=== PATIENT | female | born 1995 | race Caucasian/White ===

== ENCOUNTER 2019-01-11 18:24 | Outpatient (CLI) | payer MEDICAID ==
[~2019-01-11] VITALS: Ht 160 cm; Wt 95.5 kg
[~2019-01-11 18:24] MED LIST: MOTRIN 600600 MG/TAB PO; PERCOCET 325 MG1 TA2 PO; PRENATAL1 TA7 PO; ZANTAC 150MG T150 MG PO
--- NOTE | 2019-01-11 18:30 | NUR ---
G2L1. 29-6. Ambulatory to LDR 5. Clean gown on. EFM and TOCO explained and applied. Pt states she has been having lower right abdomen pain for the past day. Pt states when she is resting pain is not bad but when she bends over or moves frequently she has a lot of right lower abdomen pain that feels like something is tearing. Pt denies contractions, LOF, or vaginal bleeding. Reports good movement. Pt states she has not had anything to eat since 1000 am and she has not drank that much water today. Plan of care explained to pt and call light within reach. 1853: updated on pts status. See phsysican notification. Pt updated on new orders. Questions answered. Pt states she has been having small cristofer vazquez contractions but they are not hurting. 2011: Lab results called to . Discharge orders received. See physican notification. 2013: Pt updated on discharge orders and monitor taken off to change. 2024: Discharge instructions explained to pt who verbalizes understanding. Questions answered. Pt ambulatory off unit.
[2019-01-11 18:41] VITALS: BP 120/61; PULSE 93
[2019-01-11] MEDS ORDERED: ZANTAC 150MG T150 MG PO (18:45)
[2019-01-11] MEDS ORDERED: ASPIRIN 81M81 MG/TA2 PO (18:45)
[2019-01-11] MEDS ORDERED: NATURAL IRON65 MG PO (18:46)
[2019-01-11 19:22] LABS: COLLECTION METHOD CLEAN CATCH
[2019-01-11 19:30] VITALS: BP 109/56; PULSE 98
[2019-01-11 19:30] LABS: MEAN CELL VOLUME 97 fl (80.0-100.0); MEAN CORPUSCULAR HEMOGLOBIN 32 pg (27.0-31.0); MEAN CORPUSCULAR HGB CONC 33 g/dl (33.0-37.0); MEAN PLATELET VOLUME 9.6 fl (7.4-10.4); PLATELET COUNT 220 K/mm3 (130-400); RED BLOOD COUNT 3.42 M/mm3 (4.10-5.30); REDCELL DISTRIBUTION WIDTH-CV 13.9 % (11.5-14.5)
[2019-01-11 19:34] LABS: MUCOUS Present /lpf; PH 7 (5-8); URINE APPEARANCE Hazy; URINE BACTERIA Rare /hpf; URINE BILIRUBIN Negative (NEGATIVE); URINE BLOOD Negative (NEGATIVE); URINE COLOR Yellow; URINE GLUCOSE Negative (NEGATIVE); URINE KETONE Negative (NEGATIVE); URINE LEUKOCYTE ESTERASE Negative (NEGATIVE); URINE NITRATE Negative (NEGATIVE); URINE PROTEIN(semi-quant) Negative (NEGATIVE); URINE RBC 0-2 /hpf; URINE UROBILINOGEN Negative (NEGATIVE); URINE WBC 0-2 /hpf
[2019-01-11 19:35] LABS: HEMATOCRIT 33.2 % (37.0-47.0)
[2019-01-11 19:53] LABS: ALBUMIN 3.5 gm/dL (3.5-5.0); BILIRUBIN,TOTAL 0.3 mg/dL (0.0-1.0); CREATININE, serum 0.48 (0.52-1.25); POTASSIUM 3.6 mmol/L (3.4-5.0); TOTAL PROTEIN 6.7 gm/dL (6.4-8.2)
[2019-01-11 19:57] LABS: BAND 1 % (0-10); LYMPHOCYTE 13 % (20.0-51.0); METAMYELOCYTE 1 % (0-0); NEUTROPHILS 81 % (42.0-75.2); PLATELET ESTIMATE NORMAL (NORMAL)
[2019-01-11 20:14] VITALS: BP 109/55; PULSE 93; TEMP 98.8
== END 2019-01-11 20:25 | disposition home or self-care (01) ==
LOC: LDRO 18:24 → LDR 18:57 → LDRO 20:25
PROVIDERS: Obstetrics & Gynecology
DX: O99.89 Other specified diseases and conditions complicating pregnancy, childbirth and the puerperium (principal); R10.31 Right lower quadrant pain; Z3A.29 29 weeks gestation of pregnancy
CPT/HCPCS: OP

== ENCOUNTER 2019-01-22 11:00 | Outpatient (CLI) | payer MEDICAID ==
[~2019-01-22] VITALS: Ht 167.6 cm; Wt 97.3 kg
[~2019-01-22 11:00] MED LIST changes: +ASPIRIN 81M81 MG/TA2 PO; +NATURAL IRON65 MG PO
--- NOTE | 2019-01-22 11:05 | NUR ---
1105- Pt arrives on unit ambulatory for labor check. Pt into bathroom, changes into gown. Voids and provides clean catch UA. 1113- Pt into bed, EFM and TOCO on and tracing. Pt states she has had vaginal bleeding on and off since Tuesday after intercourse. She states it has fluctuated from heavy period-like bleeding to dark brown spotting. Pt states she has also noticed a small amount of wattery fluid that leaves quarter sized spots on her underware. Pt denies contractions, but states she has had intermittent lower abd tightening. +FM. Assessment completed. VSS.
[2019-01-22 11:10] VITALS: BP 116/62; PULSE 96; TEMP 98.6
[2019-01-22 12:00] VITALS: BP 121/70; PULSE 99
[2019-01-22 12:17] LABS: COLLECTION METHOD CLEAN CATCH
[2019-01-22 12:22] LABS: BASO % 0.4 % (0.0-2.0); EOS # 0.1 (0.0-0.7); EOS % 1.5 % (0-4.0); GRAN # 5.9 (1.4-6.5); HEMOGLOBIN 10.6 g/dl (12.5-16.0); LYMPH # 1.4 (1.2-3.4); LYMPH % 16.6 % (20.0-51.0); MEAN CELL VOLUME 96 fl (80.0-100.0); MEAN CORPUSCULAR HEMOGLOBIN 33 pg (27.0-31.0); MEAN CORPUSCULAR HGB CONC 34 g/dl (33.0-37.0); MEAN PLATELET VOLUME 9.2 fl (7.4-10.4); MONO # 0.6 (0.1-0.6); MONO % 7.6 % (1.7-9.3); PLATELET COUNT 211 K/mm3 (130-400); RED BLOOD COUNT 3.26 M/mm3 (4.10-5.30); REDCELL DISTRIBUTION WIDTH-CV 14.6 % (11.5-14.5)
[2019-01-22 12:24] LABS: HEMATOCRIT 31.4 % (37.0-47.0)
[2019-01-22 12:30] VITALS: BP 118/72; PULSE 94
[2019-01-22 12:31] LABS: MUCOUS Present /lpf; PH 7 (5-8); URINE APPEARANCE Hazy; URINE BACTERIA Rare /hpf; URINE BILIRUBIN Negative (NEGATIVE); URINE BLOOD 2+ (NEGATIVE); URINE COLOR Yellow; URINE GLUCOSE Negative (NEGATIVE); URINE KETONE Negative (NEGATIVE); URINE LEUKOCYTE ESTERASE 2+ (NEGATIVE); URINE NITRATE Negative (NEGATIVE); URINE PROTEIN(semi-quant) Negative (NEGATIVE); URINE RBC 0-2 /hpf; URINE UROBILINOGEN Negative (NEGATIVE)
[2019-01-22 12:33] LABS: BILIRUBIN,TOTAL 0.2 mg/dL (0.0-1.0); CALCIUM 8.3 mg/dL (8.4-10.2); CREATININE, serum 0.38 (0.52-1.25); POTASSIUM 3.5 mmol/L (3.4-5.0); TOTAL PROTEIN 5.9 gm/dL (6.4-8.2)
[2019-01-22] MEDS ORDERED: MACROBID 1100 MG/CAP PO (12:50)
--- NOTE | 2019-01-22 13:10 | NUR ---
1300- RN at bedside, EFM and TOCO off. Discharge paperwork given and explained. Reminded to follow-up in clinic tomorrow for repeat Betamethasone, no working for 1 week, precautions given. Questions answered. Pt up to bathroom to change into street clothes. 1310- Pt ambulates off unit in stable condition.
== END 2019-01-22 13:10 | disposition home or self-care (01) ==
LOC: LDRO 11:00
PROVIDERS: Obstetrics & Gynecology
DX: O26.853 Spotting complicating pregnancy, third trimester (principal); Z3A.29 29 weeks gestation of pregnancy
CPT/HCPCS: J0702

== ENCOUNTER 2019-02-23 15:08 | Outpatient (CLI) | payer MEDICAID ==
[~2019-02-23] VITALS: Ht 167.6 cm; Wt 101.4 kg
[~2019-02-23 15:08] MED LIST changes: +MACROBID 1100 MG/CAP PO
--- NOTE | 2019-02-23 15:15 | NUR ---
Patient arrives ambulatory with complaints of cramping, back pain, and rectal pressure. Patient reports some discharge, denies vaginal bleeding, and reports normal movement currently. States she noticed decreased movement earlier on today but "she has been moving normally since being in this room". Patient changes into gown, EFM explained and placed. VSS. SVE by this RN 2-/-2 with IDALIA. Patient repositioned WL. Assessment completed.
[2019-02-23 15:21] VITALS: BP 129/88; PULSE 99; TEMP 98.6
[2019-02-23 16:20] VITALS: BP 129/88; PULSE 99
--- NOTE | 2019-02-23 16:20 | NUR ---
SVE completed for check, no change noted, patient resting comfortably in bed. Discussed update with . Per patient may discharge home,follow up with routine care appointments.
== END 2019-02-23 16:20 | disposition home or self-care (01) ==
LOC: LDRO 15:08 → LDR 15:12 → LDRO 16:20
DX: O62.9 Abnormality of forces of labor, unspecified (principal); Z3A.36 36 weeks gestation of pregnancy
CPT/HCPCS: OP

== ENCOUNTER 2019-03-02 03:44 | Inpatient (IN) | payer MEDICAID ==
[~2019-03-02] VITALS: Ht 167.6 cm; Wt 103.6 kg
[2019-03-02] VITALS (50 sets, daily range): BP systolic 93–139; BP diastolic 46–646; PULSE 67–109; TEMP 97.2–99.8
--- NOTE | 2019-03-02 03:55 | NUR ---
Pt arrived on unit with complaints of contractions worsening over the last hour, discharge and decreased movement. EFM and toco monitors started. Vital signs WNL. Amnio-test negative. SVE by this RN . Pt has history of c/s with first d/t arrest of descent but pt requesting to "as long as baby is ok and safe". Information reviewed with Dr. Stapleton. Orders for labor assessment received. Plan of care reviewed with pt.
--- NOTE | 2019-03-02 08:02 | NUR ---
Pt taken off monitors. Up to ambulate.
[2019-03-02 08:16] LABS: HEMOGLOBIN 12.1 g/dl (12.5-16.0); MEAN CELL VOLUME 96 fl (80.0-100.0); MEAN CORPUSCULAR HEMOGLOBIN 32 pg (27.0-31.0); MEAN CORPUSCULAR HGB CONC 33 g/dl (33.0-37.0); MEAN PLATELET VOLUME 9.9 fl (7.4-10.4); PLATELET COUNT 186 K/mm3 (130-400); RED BLOOD COUNT 3.79 M/mm3 (4.10-5.30); REDCELL DISTRIBUTION WIDTH-CV 14.5 % (11.5-14.5)
[2019-03-02 08:20] LABS: HEMATOCRIT 36.3 % (37.0-47.0)
--- NOTE | 2019-03-02 08:49 | NUR ---
Pt back to bed. EFM and toco applied. Dr. Parks at bedside. AROM of eliseo tinted fluid noted. SVE /2. Pericare performed. Pt updated on POC. Safety reviewed. Bed locked in low postion. Call light within reach. No questions or concerns at this time.
[2019-03-02 09:11] LABS: BAND 1 % (0-10); EOSINOPHIL 4 % (0-4); LYMPHOCYTE 17 % (20.0-51.0); NEUTROPHILS 73 % (42.0-75.2); PLATELET ESTIMATE NORMAL (NORMAL)
--- NOTE | 2019-03-02 11:40 | NUR ---
Difficulty tracing FHR due to maternal position. RN at bedside adjusting monitors. FHR audible.
--- NOTE | 2019-03-02 15:45 | NUR ---
Dr. Parks on unit. Assesses maternal pushing efforts. Determines OP position without movement of vertex. Orders csection delivery. Pt agrees to POC. 1552-Pt prepped for surgery. Taken off monitors. Taken to OR via bed.
--- NOTE | 2019-03-02 18:30 | NUR ---
1830-PT STATES PAIN IS NO BETTER. PT CLOSES EYES AND TO NSY FOR ASSESSMENT SO PT CAN REST.
--- NOTE | 2019-03-02 19:00 | NUR ---
1900-PT C/O PAIN RATED 10. MORPHINE 2MG GIVEN IV AT THIS TIME.
--- NOTE | 2019-03-02 19:30 | NUR ---
1930- TO NURSERY FOR BATH. SUPPER TRAY TO ROOM. PT STATES PAIN IS SOMEWHAT BETTER AND IS NOW RATED A 7 COMPARED TO A 10 PRIOR TO MORPHINE ADMINISTRATION.
[2019-03-03 01:30] VITALS: BP 110/50; PULSE 69; TEMP 98.3
[2019-03-03 07:44] VITALS: BP 116/55; PULSE 75
[2019-03-03 16:21] VITALS: BP 122/67; PULSE 86
[2019-03-03 19:30] VITALS: BP 113/58; PULSE 79; TEMP 97.9
[2019-03-04] MEDS ORDERED: PERCOCET 325 MG1 TA2 PO (09:12)
[2019-03-04] MEDS ORDERED: MOTRIN 800800 MG/TAB PO (09:12)
[2019-03-04 09:30] VITALS: BP 121/73; PULSE 84; TEMP 985
[2019-03-04 16:12] VITALS: BP 110/57; PULSE 69; TEMP 98.2
[2019-03-04 22:20] VITALS: BP 112/67; PULSE 90; TEMP 98.1
[2019-03-05 10:00] VITALS: BP 108/75; PULSE 89; TEMP 98.3
== END 2019-03-05 17:35 | disposition home or self-care (01) | DRG 788 ==
LOC: LDRO 03:44 → OB 03:50 → LDR 03:50 → OB 17:00
PROVIDERS: ADMIT Obstetrics & Gynecology
PROC: 10D00Z1 Extraction of Products of Conception, Low, Open Approach (ICD-10-PCS; principal; 2019-03-02)
DX: O34.211 Maternal care for low transverse scar from previous cesarean delivery (principal); O99.214 Obesity complicating childbirth; E66.9 Obesity, unspecified; O99.02 Anemia complicating childbirth; D64.9 Anemia, unspecified; O32.4XX0 Maternal care for high head at term, not applicable or unspecified; O77.0 Labor and delivery complicated by meconium in amniotic fluid; O99.62 Diseases of the digestive system complicating childbirth; O66.3 Obstructed labor due to other abnormalities of fetus; K21.9 Gastro-esophageal reflux disease without esophagitis; K44.9 Diaphragmatic hernia without obstruction or gangrene; O66.41 Failed attempted vaginal birth after previous cesarean delivery; Z3A.37 37 weeks gestation of pregnancy; Z37.0 Single live birth; Z88.2 Allergy status to sulfonamides; O62.1 Secondary uterine inertia
CPT/HCPCS: J0690; J1885; J2270; J2370; J2400; J2405; J2590; J2795; J3010; J7120

== ENCOUNTER 2019-07-12 19:27 | Emergency (ER) | payer MEDICAID ==
[~2019-07-12] VITALS: Ht 167.6 cm; Wt 88.6 kg
[~2019-07-12 19:27] MED LIST changes: +MOTRIN 800800 MG/TAB PO
[2019-07-12 20:16] LABS: HEMATOCRIT 46.2 % (37.0-47.0); HEMOGLOBIN 15.6 g/dl (12.5-16.0); MEAN CELL VOLUME 91 fl (80.0-100.0); MEAN CORPUSCULAR HEMOGLOBIN 31 pg (27.0-31.0); MEAN CORPUSCULAR HGB CONC 34 g/dl (33.0-37.0); MEAN PLATELET VOLUME 9.3 fl (7.4-10.4); PLATELET COUNT 322 K/mm3 (130-400); RED BLOOD COUNT 5.06 M/mm3 (4.10-5.30); REDCELL DISTRIBUTION WIDTH-CV 11.3 % (11.5-14.5)
[2019-07-12 20:25] LABS: COLLECTION METHOD CLEAN CATCH
[2019-07-12 20:29] LABS: ALBUMIN 4.4 gm/dL (3.5-5.0); BILIRUBIN,TOTAL 0.6 mg/dL (0.0-1.0); CALCIUM 9.2 mg/dL (8.4-10.2); CREATININE, serum 0.82 (0.52-1.25); POTASSIUM 4.5 mmol/L (3.4-5.0); TOTAL PROTEIN 8.2 gm/dL (6.4-8.2)
[2019-07-12 20:34] LABS: MUCOUS Present /lpf; PH 5 (5-8); URINE APPEARANCE Hazy; URINE BACTERIA None Seen /hpf; URINE BILIRUBIN Negative (NEGATIVE); URINE BLOOD Negative (NEGATIVE); URINE COLOR Yellow; URINE GLUCOSE Negative (NEGATIVE); URINE KETONE Negative (NEGATIVE); URINE LEUKOCYTE ESTERASE Negative (NEGATIVE); URINE NITRATE Negative (NEGATIVE); URINE PROTEIN(semi-quant) 1+ (NEGATIVE); URINE RBC 0-2 /hpf; URINE UROBILINOGEN Negative (NEGATIVE)
[2019-07-12 21:03] LABS: BAND 4 % (0-10); LYMPHOCYTE 2 % (20.0-51.0); NEUTROPHILS 93 % (42.0-75.2); PLATELET ESTIMATE NORMAL (NORMAL)
[2019-07-12] MEDS ORDERED: PHENERGAN 25 TA25 MG PO (22:38)
[2019-07-12] MEDS ORDERED: ZOFRAN ODT4 MG PO (22:38)
[2019-07-12 23:00] VITALS: BP 122/78; PULSE 78; TEMP 98.4
== END 2019-07-12 23:00 | disposition home or self-care (01) ==
LOC: COL.ER 19:27
PROVIDERS: Emergency Medicine
DX: A08.39 Other viral enteritis (principal); Z88.2 Allergy status to sulfonamides
CPT/HCPCS: J0780; J1885; J2405; J7030

== ENCOUNTER → 2019-09-05 | Outpatient (CLI) | payer MEDICAID ==
[~2019-09-05] MED LIST changes: +PHENERGAN 25 TA25 MG PO; +ZOFRAN ODT4 MG PO
== END ==
LOC: COL.RAD 08:34
DX: R10.9 Unspecified abdominal pain (principal); Z98.890 Other specified postprocedural states

== ENCOUNTER 2020-05-20 14:43 | Emergency (ER) | payer MEDICAID ==
[~2020-05-20] VITALS: Ht 167.6 cm; Wt 86.4 kg
[2020-05-20 14:50] VITALS: TEMP 98.6
[2020-05-20] MEDS ORDERED: PRILOSEC 20MG20 MG PO (15:02)
[2020-05-20] MEDS ORDERED: ELURYNG VAGINA1 EACH VG (15:02)
[2020-05-20 15:50] LABS: BASO % 0.3 % (0.0-2.0); EOS # 0.1 (0.0-0.7); EOS % 1.5 % (0-4.0); GRAN % 65.6 % (42.2-75.2); HEMOGLOBIN 12.5 g/dl (12.5-16.0); LYMPH # 1.9 (1.2-3.4); LYMPH % 24.4 % (20.0-51.0); MEAN CELL VOLUME 90 fl (80.0-100.0); MEAN CORPUSCULAR HEMOGLOBIN 31 pg (27.0-31.0); MEAN CORPUSCULAR HGB CONC 34 g/dl (33.0-37.0); MEAN PLATELET VOLUME 9.7 fl (7.4-10.4); MONO # 0.6 (0.1-0.6); MONO % 7.9 % (1.7-9.3); PLATELET COUNT 294 K/mm3 (130-400); RED BLOOD COUNT 4.08 M/mm3 (4.10-5.30); REDCELL DISTRIBUTION WIDTH-CV 11.9 % (11.5-14.5)
[2020-05-20 15:54] LABS: HEMATOCRIT 36.5 % (37.0-47.0)
[2020-05-20] MEDS ORDERED: PRIL40 PO (17:06)
[2020-05-20] MEDS ORDERED: CIPRO 500MG TA500 MG PO (18:43)
[2020-05-20] MEDS ORDERED: ZOFRAN 4MG T4 MG/TAB PO (18:43)
[2020-05-20 18:45] VITALS: BP 129/66; PULSE 79
== END 2020-05-20 18:48 | disposition home or self-care (01) ==
LOC: COL.ER 14:43
PROVIDERS: Physician Assistant
DX: A04.0 Enteropathogenic Escherichia coli infection (principal); K21.9 Gastro-esophageal reflux disease without esophagitis; Z88.2 Allergy status to sulfonamides
CPT/HCPCS: C9113; J2405; J7030

== ENCOUNTER 2021-02-21 15:22 | Emergency (ER) | payer MEDICAID ==
[~2021-02-21] VITALS: Ht 167.6 cm; Wt 84.5 kg
[~2021-02-21 15:22] MED LIST changes: +CIPRO 500MG TA500 MG PO; +ELURYNG VAGINA1 EACH VG; +PRIL40 PO; +PRILOSEC 20MG20 MG PO; +ZOFRAN 4MG T4 MG/TAB PO
[2021-02-21 15:47] VITALS: TEMP 98.3
[2021-02-21 18:39] LABS: BASO % 0.4 % (0.0-2.0); EOS # 0.2 (0.0-0.7); EOS % 1.9 % (0-4.0); GRAN # 4.1 (1.4-6.5); HEMATOCRIT 41.1 % (37.0-47.0); HEMOGLOBIN 13.6 g/dl (12.5-16.0); LYMPH # 3.1 (1.2-3.4); LYMPH % 38.6 % (20.0-51.0); MEAN CELL VOLUME 90 fl (80.0-100.0); MEAN CORPUSCULAR HEMOGLOBIN 30 pg (27.0-31.0); MEAN CORPUSCULAR HGB CONC 33 g/dl (33.0-37.0); MEAN PLATELET VOLUME 9.1 fl (7.4-10.4); MONO # 0.6 (0.1-0.6); PLATELET COUNT 365 K/mm3 (130-400); RED BLOOD COUNT 4.56 M/mm3 (4.10-5.30); REDCELL DISTRIBUTION WIDTH-CV 11.9 % (11.5-14.5)
[2021-02-21 18:52] LABS: ALANINE AMINOTRANSFERASE 19 U/L (4-34); ALBUMIN 4.4 gm/dL (3.5-5.0); ALKALINE PHOSPHATASE 88 U/L (50-136); ANION GAP 6 mmol/L (7-16); AST,SGOT 20 U/L (15-37); BILIRUBIN,TOTAL 0.6 mg/dL (0.0-1.0); BLOOD UREA NITROGEN 13 mg/dL (7-17); CALCIUM 9.4 mg/dL (8.4-10.2); CARBON DIOXIDE 29 mmol/L (22-30); CHLORIDE 105 mmol/L (98-107); CREATININE, serum 0.68 (0.52-1.25); GLUCOSE 87 mg/dL (74-106); LIPASE 79 U/L (23-300); POTASSIUM 3.8 mmol/L (3.4-5.0); SODIUM 140 mmol/L (137-145); TOTAL PROTEIN 8.2 gm/dL (6.4-8.2)
[2021-02-21 19:28] LABS: TROPONIN-I < 0.012 ng/mL (0.000-0.035)
[2021-02-21 21:10] VITALS: BP 119/84; PULSE 82
== END 2021-02-21 21:15 | disposition home or self-care (01) ==
LOC: COL.ER 15:22
PROVIDERS: Nurse Practitioner Primary Care; Personal Emergency Response Attendant
DX: R10.31 Right lower quadrant pain (principal); R07.89 Other chest pain
CPT/HCPCS: J1885; J2405

== ENCOUNTER 2021-04-04 21:20 | Emergency (ER) | payer MEDICAID ==
[~2021-04-04] VITALS: Ht 167.6 cm; Wt 86.4 kg
[2021-04-04 21:39] VITALS: TEMP 97.6
[2021-04-04 22:03] LABS: COLLECTION METHOD CLEAN CATCH
[2021-04-04 22:12] LABS: MUCOUS Present /lpf; PH 6 (5-8); SQUAMOUS EPITHELIAL 0-2 /hpf; URINE APPEARANCE Hazy; URINE BACTERIA None Seen /hpf; URINE BILIRUBIN Negative (NEGATIVE); URINE BLOOD 3+ (NEGATIVE); URINE COLOR Yellow; URINE GLUCOSE Negative (NEGATIVE); URINE KETONE Negative (NEGATIVE); URINE LEUKOCYTE ESTERASE Negative (NEGATIVE); URINE NITRATE Negative (NEGATIVE); URINE PROTEIN(semi-quant) 1+ (NEGATIVE); URINE RBC >50 /hpf; URINE UROBILINOGEN Negative (NEGATIVE)
[2021-04-04 22:58] LABS: BASO # 0.1 (0.0-0.2); BASO % 0.9 % (0.0-2.0); EOS # 0.1 (0.0-0.7); EOS % 2.1 % (0-4.0); GRAN # 3.2 (1.4-6.5); GRAN % 47.5 % (42.2-75.2); HEMATOCRIT 37.1 % (37.0-47.0); HEMOGLOBIN 12.5 g/dl (12.5-16.0); LYMPH # 2.7 (1.2-3.4); LYMPH % 40.1 % (20.0-51.0); MEAN CELL VOLUME 89 fl (80.0-100.0); MEAN CORPUSCULAR HEMOGLOBIN 30 pg (27.0-31.0); MEAN CORPUSCULAR HGB CONC 34 g/dl (33.0-37.0); MEAN PLATELET VOLUME 9.5 fl (7.4-10.4); MONO # 0.6 (0.1-0.6); MONO % 9.1 % (1.7-9.3); PLATELET COUNT 298 K/mm3 (130-400); RED BLOOD COUNT 4.15 M/mm3 (4.10-5.30); REDCELL DISTRIBUTION WIDTH-CV 11.9 % (11.5-14.5)
[2021-04-04 23:13] LABS: ALBUMIN 4.1 gm/dL (3.5-5.0); BILIRUBIN,TOTAL 0.4 mg/dL (0.0-1.0); CREATININE, serum 0.71 (0.52-1.25); POTASSIUM 3.8 mmol/L (3.4-5.0); TOTAL PROTEIN 7.4 gm/dL (6.4-8.2)
[2021-04-05] MEDS ORDERED: FLEXERIL 1010 MG/TAB PO (01:00)
[2021-04-05 01:13] VITALS: BP 117/81; PULSE 79
== END 2021-04-05 01:13 | disposition home or self-care (01) ==
LOC: COL.ER 21:20
PROVIDERS: Emergency Medicine; Physician Assistant
DX: S32.038A Other fracture of third lumbar vertebra, initial encounter for closed fracture (principal); R10.31 Right lower quadrant pain; R07.89 Other chest pain; W10.9XXA Fall (on) (from) unspecified stairs and steps, initial encounter
CPT/HCPCS: Q9967

== ENCOUNTER 2021-05-16 20:11 | Emergency (ER) | payer MEDICAID ==
[~2021-05-16] VITALS: Ht 167.6 cm; Wt 85.5 kg
[~2021-05-16 20:11] MED LIST changes: +FLEXERIL 1010 MG/TAB PO
[2021-05-16 20:43] VITALS: TEMP 98.8
[2021-05-16 21:21] LABS: COLLECTION METHOD CLEAN CATCH
[2021-05-16 21:21] LABS: BASO # 0.1 K/mm3 (0.0-0.2); BASO % 0.7 % (0.0-2.0); EOS # 0.2 K/mm3 (0.0-0.7); EOS % 1.9 % (0-4.0); GRAN # 4.1 K/mm3 (1.4-6.5); GRAN % 51.3 % (42.2-75.2); HEMATOCRIT 37.2 % (37.0-47.0); HEMOGLOBIN 12.3 g/dl (12.5-16.0); LYMPH % 37.4 % (20.0-51.0); MEAN CELL VOLUME 91 fl (80.0-100.0); MEAN CORPUSCULAR HEMOGLOBIN 30 pg (27.0-31.0); MEAN CORPUSCULAR HGB CONC 33 g/dl (33.0-37.0); MEAN PLATELET VOLUME 9.3 fl (7.4-10.4); MONO # 0.7 K/mm3 (0.1-0.6); MONO % 8.5 % (1.7-9.3); PLATELET COUNT 305 K/mm3 (130-400); RED BLOOD COUNT 4.09 M/mm3 (4.10-5.30); REDCELL DISTRIBUTION WIDTH-CV 11.8 % (11.5-14.5)
[2021-05-16 21:27] LABS: MUCOUS Present /lpf; PH 6 (5-8); SQUAMOUS EPITHELIAL 0-2 /hpf; URINE APPEARANCE Hazy; URINE BACTERIA None Seen /hpf; URINE BILIRUBIN Negative (NEGATIVE); URINE BLOOD Negative (NEGATIVE); URINE COLOR Yellow; URINE GLUCOSE Negative (NEGATIVE); URINE KETONE Negative (NEGATIVE); URINE LEUKOCYTE ESTERASE Negative (NEGATIVE); URINE NITRATE Negative (NEGATIVE); URINE PROTEIN(semi-quant) Negative (NEGATIVE); URINE RBC None Seen /hpf; URINE UROBILINOGEN Negative (NEGATIVE)
[2021-05-16 21:36] LABS: ALBUMIN 3.7 gm/dL (3.5-5.0); BILIRUBIN,TOTAL 0.4 mg/dL (0.2-1.2); CALCIUM 9.1 mg/dL (8.4-10.2); CREATININE, serum 0.79 mg/dL (0.57-1.11); TOTAL PROTEIN 6.9 gm/dL (6.2-8.1)
[2021-05-16] MEDS ORDERED: NORCO 325 MG-51 TAB PO (23:45)
[2021-05-16 23:54] VITALS: BP 118/73; PULSE 79
== END 2021-05-16 23:54 | disposition home or self-care (01) ==
LOC: COL.ER 20:11
PROVIDERS: Emergency Medicine
DX: R10.11 Right upper quadrant pain (principal); R11.0 Nausea; Z90.49 Acquired absence of other specified parts of digestive tract; Z32.02 Encounter for pregnancy test, result negative
CPT/HCPCS: J1885; J2270; J7030; Q9967

== ENCOUNTER 2022-04-05 09:55 | Emergency (ER) | payer MEDICAID ==
[~2022-04-05] VITALS: Ht 167.6 cm; Wt 77.3 kg
[~2022-04-05 09:55] MED LIST changes: +NORCO 325 MG-51 TAB PO
[2022-04-05 10:48] VITALS: TEMP 98.7
[2022-04-05 13:15] LABS: COLLECTION METHOD CLEAN CATCH
[2022-04-05 13:15] LABS: BASO % 0.5 % (0.0-2.0); EOS % 0.4 % (0.0-4.0); GRAN # 6.6 K/mm3 (1.4-6.5); GRAN % 78.1 % (42.2-75.2); HEMATOCRIT 41.2 % (37.0-47.0); HEMOGLOBIN 14.5 g/dl (12.5-16.0); LYMPH # 1.2 K/mm3 (1.2-3.4); LYMPH % 14.6 % (20.0-51.0); MEAN CELL VOLUME 91 fl (80.0-100.0); MEAN CORPUSCULAR HEMOGLOBIN 32 pg (27-31); MEAN CORPUSCULAR HGB CONC 35 g/dl (33.0-37.0); MEAN PLATELET VOLUME 9.2 fl (7.4-10.4); MONO # 0.5 K/mm3 (0.1-0.6); MONO % 6.2 % (1.7-9.3); PLATELET COUNT 295 K/mm3 (130-400); RED BLOOD COUNT 4.51 M/mm3 (4.10-5.30); REDCELL DISTRIBUTION WIDTH-CV 12.2 % (11.5-14.5)
[2022-04-05 13:26] LABS: ALBUMIN 3.9 gm/dL (3.5-5.0); BILIRUBIN,TOTAL 0.5 mg/dL (0.2-1.2); CALCIUM 9.5 mg/dL (8.4-10.2); CREATININE, serum 0.77 mg/dL (0.57-1.11); POTASSIUM 4.2 mmol/L (3.5-4.5); TOTAL PROTEIN 7.9 gm/dL (6.2-8.1)
[2022-04-05 13:30] LABS: MUCOUS Present (NOT PRESENT); URINE BACTERIA None Seen /hpf (NONE SEEN); URINE RBC >50 /hpf (0-2)
[2022-04-05 13:33] LABS: URINE APPEARANCE Hazy (CLEAR/HAZY); URINE COLOR Amber (YELLOW)
[2022-04-05 13:34] LABS: PH 5.5 (5.0-8.5); URINE GLUCOSE Negative (NEGATIVE); URINE KETONE Negative (NEGATIVE); URINE PROTEIN(semi-quant) TRACE (NEGATIVE); URINE UROBILINOGEN 0.2 E.U/dL (0.2-1.0)
[2022-04-05 13:35] LABS: URINE NITRATE Negative (NEGATIVE)
[2022-04-05 13:36] LABS: URINE BLOOD 2+ (NEGATIVE)
[2022-04-05] MEDS ORDERED: ZOFRAN ODT4 MG PO (15:48)
[2022-04-05] MEDS ORDERED: LEVSIN 0.10.125 MG/T PO (15:50)
[2022-04-05 16:00] VITALS: BP 120/72; PULSE 80
== END 2022-04-05 16:05 | disposition home or self-care (01) ==
LOC: COL.ER 09:55
PROVIDERS: Physician Assistant
DX: A02.0 Salmonella enteritis (principal); Z90.49 Acquired absence of other specified parts of digestive tract; Z20.822 Contact with and (suspected) exposure to COVID-19
CPT/HCPCS: J1885; J2405; J7030; Q9967